=== PATIENT | female | born 1945 ===

== ENCOUNTER 2016-08-23 12:40 | Emergency (ER) | payer SELFPAY ==
[2016-08-23 12:43] VITALS: BP 145/84; PULSE 69; RESP 22; TEMP 97; O2SAT 100
[2016-08-23] MEDS ORDERED: Lidocaine/Epi 1% 1:100000 20 ML IJ ONE (12:54)
--- NOTE | 2016-08-23 13:35 | CT ---
PROCEDURE: CT HEAD WITHOUT CONTRAST. HISTORY: head injury COMPARISON: None available. TECHNIQUE: Axial computed tomography images were obtained through the head/brain without intravenous contrast. Coronal and sagittal reconstructed images. Radiation dose: Total exam DLP = 848.22 mGy-cm. This CT exam was performed using one or more of the following dose reduction techniques: Automated exposure control, adjustment of the mA and/or kV according to patient size, and/or use of iterative reconstruction technique. FINDINGS: HEMORRHAGE: No intracranial hemorrhage. BRAIN: No mass effect or edema. No atrophy or chronic microvascular ischemic changes. VENTRICLES: Unremarkable. No hydrocephalus. CALVARIUM: Unremarkable. PARANASAL SINUSES: Unremarkable as visualized. No significant inflammatory changes. MASTOID AIR CELLS: Unremarkable as visualized. No inflammatory changes. OTHER FINDINGS: None. IMPRESSION: No acute intracranial abnormalities. No significant findings to account for the clinical presentation.
--- NOTE | 2016-08-23 13:45 | ED PDOC ---
HPI: General Adult Time Seen by Provider: 08/23/16 12:40 Chief Complaint (Nursing): Abnormal Skin Integrity Chief Complaint (Provider): Abnormal Skin Integrity History Per: Patient History/Exam Limitations: no limitations Onset/Duration Of Symptoms: Hrs (Prior to arrival) Additional Complaint(s): 71 y/o female with a history of hypertension who presents to the emergency department with a complaint of lacerations on the face after tripping while going up the stairs prior to arrival. Associated with a headache and nausea. Denies loss of consciousness or ingestion of blood thinners. Patient states she takes Aspirin and Enalapril. 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 Past Medical History Reviewed: Historical Data, Nursing Documentation, Vital Signs Vital Signs: Last Vital Signs Temp 97.0 F L 08/23/16 12:41 Pulse 69 08/23/16 12:41 Resp 22 08/23/16 12:41 BP 145/84 08/23/16 12:41 Pulse Ox 100 08/23/16 15:00 - Medical History PMH: HTN - Surgical History Other surgeries: Tumor removal - Family History Family History: States: Unknown Family Hx - Home Medications Home Medications: Ambulatory Orders Medication Instructions Recorded Acetaminophen [Acetaminophen Extra 2 tab PO Q6 PRN #24 tablet 08/23/16 Strength] Bacitracin Ointment [Bacitracin] 0.5 gm TOP BID #30 gm 08/23/16 - Allergies Allergies/Adverse Reactions: Allergies Allergy/AdvReac Type Severity Reaction Status Date / Time No Known Allergies Allergy Verified 08/23/16 12:43 Review of Systems ROS Statement: Except As Marked, All Systems Reviewed And Found Negative Constitutional: Negative for: Other (Loss of consciousness) Gastrointestinal: Positive for: Nausea Skin: Positive for: Other (Lacerations on the face) Neurological: Positive for: Headache Physical Exam - Reviewed Nursing Documentation Reviewed: Yes Vital Signs Reviewed: Yes - Physical Exam Appears: Positive for: Non-toxic, No Acute Distress Head Exam: Positive for: ATRAUMATIC, NORMOCEPHALIC Neurologic/Psych: Positive for: Alert, Oriented - ECG O2 Sat by Pulse Oximetry: 100 (RA) Pulse Ox Interpretation: Normal Medical Decision Making Medical Decision Making: Time: 12:40 Initial impression: Laceration status post fall Initial plan: --Head w/o contrast (CT) --Lidocaine/Epi 1% (20mL) 2 mL IJ --Tylenol 975 mg PO --Revaluation Time: 13:33 --Head CT FINDINGS: HEMORRHAGE: No intracranial hemorrhage. BRAIN: No mass effect or edema. No atrophy or chronic microvascular ischemic changes. VENTRICLES: Unremarkable. No hydrocephalus. CALVARIUM: Unremarkable. PARANASAL SINUSES: Unremarkable as visualized. No significant inflammatory changes. MASTOID AIR CELLS: Unremarkable as visualized. No inflammatory changes. OTHER FINDINGS: None. IMPRESSION: No acute intracranial abnormalities. No significant findings to account for the clinical presentation. Time: 14:40 --Laceration was about 3cm. Cleaned with saline and betadine. Suture: 8 with 6.0 prolene external and 2 5.0 monocryl subcu. Scribe Attestation: Documented by Latoya Harry, acting as a scribe for Xuan rabago PA-C. Provider Scribe Attestation: All medical record entries made by the Scribe were at my direction and personally dictated by me. I have reviewed the chart and agree that the record accurately reflects my personal performance of the history, physical exam, medical decision making, and the department course for this patient. I have also personally directed, reviewed, and agree with the discharge instructions and disposition. Procedures - Laceration/Wound Repair Face Wound Length (cm): 3 Wound Explored: clean (Cleaned with saline and betadine) Anesthesia: Lidocaine w/ Epi (1%) Wound Repaired With: Sutures (8 with 6.0 proline external/ two 5.0 monocryl subcutaneous) Wound Complexity: Simple Disposition - Clinical Impression Clinical Impression: Head injury, Facial laceration - Patient ED Disposition Is Patient to be Admitted: No - Disposition Disposition: Routine/Home Disposition Time: 15:00 Condition: FAIR Additional Instructions: REGRESA 4-5 ROJAS OR SIGA CON SIMMS MEDICO PRIVADO PARA QUITAR PUNTOS Prescriptions: Acetaminophen [Acetaminophen Extra Strength] 2 tab PO Q6 PRN #24 tablet PRN Reason: Pain, Moderate (4-7) Bacitracin Ointment [Bacitracin] 0.5 gm TOP BID #30 gm Instructions: Laceration (ED), Head Injury (ED) Print Language: NIGERIEN
[2016-08-23] MEDS ORDERED: Lidocaine 2% w Epi 1:100,000 Inj IJ ONE (14:04)
== END 2016-08-23 15:06 | disposition home or self-care (01) ==
LOC: H.ER 12:40
DX: S09.90XA Unspecified injury of head, initial encounter (principal); S01.81XA Laceration without foreign body of other part of head, initial encounter; W19.XXXA Unspecified fall, initial encounter; Y92.89 Other specified places as the place of occurrence of the external cause; I10 Essential (primary) hypertension

== ENCOUNTER 2016-08-27 14:06 | Emergency (ER) | payer SELFPAY ==
[2016-08-27 14:15] VITALS: BP 153/90; PULSE 76; RESP 18; TEMP 98.3; O2SAT 99
--- NOTE | 2016-08-27 15:16 | ED PDOC ---
HPI: Wound Care - HPI Time Seen by Provider: 08/27/16 15:00 Chief Complaint (Nursing): Suture/Staple Removal Chief Complaint (Provider): suture removal History Per: Patient Additional Complaint(s): 71yo M in Ed for suture removal to forehead-no fever no chills no drainage from wound. Past Medical History Reviewed: Historical Data, Nursing Documentation, Vital Signs Vital Signs: Last Vital Signs Temp 98.3 F 08/27/16 14:12 Pulse 76 08/27/16 14:12 Resp 18 08/27/16 14:12 BP 153/90 H 08/27/16 14:12 Pulse Ox 99 08/27/16 14:12 - Medical History PMH: HTN - Family History Family History: States: Unknown Family Hx - Home Medications Home Medications: Ambulatory Orders Medication Instructions Recorded Acetaminophen [Acetaminophen Extra 2 tab PO Q6 PRN #24 tablet 08/23/16 Strength] Bacitracin Ointment [Bacitracin] 0.5 gm TOP BID #30 gm 08/23/16 - Allergies Allergies/Adverse Reactions: Allergies Allergy/AdvReac Type Severity Reaction Status Date / Time No Known Allergies Allergy Verified 08/23/16 12:43 Review of Systems ROS Statement: Except As Marked, All Systems Reviewed And Found Negative Constitutional: Negative for: Fever Physical Exam - Reviewed Nursing Documentation Reviewed: Yes Vital Signs Reviewed: Yes - Physical Exam Appears: Positive for: Well, Non-toxic, No Acute Distress Head Exam: Positive for: ATRAUMATIC, NORMAL INSPECTION, NORMOCEPHALIC Skin: Positive for: Normal Color, Warm (sutures noted and removed without difficulty ) Cardiovascular/Chest: Positive for: Regular Rate, Rhythm Respiratory: Positive for: CNT, Normal Breath Sounds Neurologic/Psych: Positive for: Alert, Oriented - ECG O2 Sat by Pulse Oximetry: 99 Medical Decision Making Medical Decision Making: steri strips placed. Disposition - Clinical Impression Clinical Impression: Removal of suture - Patient ED Disposition Is Patient to be Admitted: No Counseled Patient/Family Regarding: Need For Followup - Disposition Disposition: Routine/Home Disposition Time: 15:17 Condition: STABLE Instructions: Stitches Removal (ED) Print Language: [place]
== END 2016-08-27 15:27 | disposition home or self-care (01) ==
LOC: H.ER 14:06
DX: Z48.02 Encounter for removal of sutures (principal); I10 Essential (primary) hypertension